=== PATIENT | female | born 1995 | race Caucasian/White ===

== ENCOUNTER 2022-09-19 14:36 | Inpatient (IN) | payer BC ==
[~2022-09-19 14:36] MED LIST: Bupivacaine/Epinephrine 0.25% 30 ML VIAL ONE
[2022-09-19] MEDS ORDERED: NS w/ Oxytocin 30 units 500 ML IV SCH ×3 (15:11)
[2022-09-19] MEDS ORDERED: Butorphanol Tartrate 1 MG/ML VIAL SLOW IVP PRN (15:11)
[2022-09-19] MEDS ORDERED: Zolpidem Tartrate 5 MG TAB PO PRN (15:11)
[2022-09-19] MEDS ORDERED: Diphenoxylate HCl/Atropine Tablet PO PRN ×2 (15:11)
[2022-09-19] MEDS ORDERED: Docusate 100 MG CAP PO PRN (15:11)
[2022-09-19] MEDS ORDERED: Misoprostol 200 MCG TAB PR PRN (15:11)
[2022-09-19] MEDS ORDERED: Ibuprofen 800 MG TAB PO PRN (15:11)
[2022-09-19] MEDS ORDERED: hydrALAZINE 20 MG/ML VIAL SLOW IVP PRN (15:11)
[2022-09-19] MEDS ORDERED: Carboprost 250 MCG/ML AMP IM PRN (15:11)
[2022-09-19] MEDS ORDERED: HYDROcodone/Acetaminophen 5/325 mg Tablet PO PRN ×2 (15:11)
[2022-09-19] MEDS ORDERED: Promethazine HCl 25 MG/ML VIAL IM PRN (15:11)
[2022-09-19] MEDS ORDERED: Lidocaine 1% (PF) 30 ML VIAL SC PRN (15:11)
[2022-09-19] MEDS ORDERED: Ondansetron PF 4 MG/2 ML Vial IVP PRN (15:11)
[2022-09-19] MEDS ORDERED: Acetaminophen 500 MG TAB PO PRN (15:11)
[2022-09-19] MEDS ORDERED: Misoprostol 100 MCG TAB ONE (15:14)
[2022-09-19 15:17] VITALS: BMI 22.5
[2022-09-19 15:28] LABS: Hemoglobin 11.2 g/dL (12.0-15.5); Mean Corpuscular HGB CONC 34.4 g/dL (32.0-36.0); Mean Corpuscular Hemoglobin 30.9 pg (27.0-33.0); Mean Corpuscular Volume 90.1 fl (81.6-98.3); Mean Platelet Volume 10.3 fl (7.4-10.4); Platelet Count 196 10x3/uL (150-450); RBC Distribution Width 12.4 % (11.5-14.5); Red Blood Cell (RBC) Count 3.62 10x6/uL (3.90-5.03); White Blood Cell (WBC) Count 9.9 10x3/uL (3.5-10.5)
[2022-09-19] MEDS: Lactated Ringer's 1,000 ML IV SCH (15:30)
[2022-09-19] MEDS: Misoprostol 100 MCG TAB VAG SCH ×2 (15:30→19:13)
[2022-09-19 16:42] LABS: Syphilis Antibody Nonreactive (Nonreactive); Syphilis Antibody Index 0.07 S/CO (<1.00 Non-Reactive)
[2022-09-19 16:45] LABS: HBSAg Index 0.14 S/CO (0-0.99); HIV (1/2) Antibody/Antigen Non-Reactive (NonReactive); HIV 1/2 INDEX 0.09 S/CO (<1.00); Hep B Surf Ag - L&D Non-Reactive S/CO (NonReactive)
[2022-09-20] MEDS ORDERED: Fentanyl 2 mcg/Bup 0.1% Cadd 100 ML ONE ×2 (06:07→13:17)
[2022-09-20] MEDS ORDERED: Naloxone HCl 0.4 mg/ml Vial IVP PRN ×2 (07:18)
[2022-09-20] MEDS ORDERED: diphenhydrAMINE 50 MG/ML VIAL IVP PRN (07:18)
[2022-09-20] MEDS ORDERED: Promethazine HCl 25 MG/ML VIAL IM PRN (07:18)
[2022-09-20] MEDS ORDERED: Ondansetron PF 4 MG/2 ML Vial IVP PRN ×2 (07:18→16:40)
[2022-09-20] MEDS ORDERED: Acetaminophen 325 MG TAB PO PRN (07:18)
[2022-09-20] MEDS ORDERED: ePHEDrine Sulfate 50 MG/10 ML VIAL SLOW IVP PRN (07:18)
[2022-09-20] MEDS ORDERED: Lactated Ringer's 500 ML IV PRN (07:18)
[2022-09-20] MEDS ORDERED: Moisturizing Cream (Eucerin) 113 GM JAR TOP PRN (07:18)
[2022-09-20] MEDS ORDERED: Fentanyl 2 mcg/Bupivacaine 0.1% Cassette 100 ML EPIDURAL SCH (07:30)
[2022-09-20] MEDS ORDERED: Communication Order-Pharmacy FS SCH (07:30)
[2022-09-20] MEDS ORDERED: diphenhydrAMINE 25 MG CAP PO PRN (16:40)
[2022-09-20] MEDS ORDERED: Benzocaine-Menthol 82.5 ML CAN TOP PRN (16:40)
[2022-09-20] MEDS ORDERED: Boostrix 0.5 ML (Tdap) VIAL (>/=7 yrs of age) IM ONE (16:40)
[2022-09-20] MEDS ORDERED: Preparation H Ointment 28 GM TUBE PR PRN (16:40)
[2022-09-20] MEDS ORDERED: Zolpidem Tartrate 5 MG TAB PO PRN (16:40)
[2022-09-20] MEDS ORDERED: Lanolin Ointment 7 GM TUBE TOP PRN (16:40)
[2022-09-20] MEDS ORDERED: Misoprostol 200 MCG TAB VAG PRN (16:40)
[2022-09-20] MEDS ORDERED: hydrALAZINE 20 MG/ML VIAL SLOW IVP PRN (16:40)
[2022-09-20] MEDS ORDERED: Bisacodyl 10 MG SUPP PR PRN (16:40)
[2022-09-20] MEDS ORDERED: Milk Of Magnesia 30 ML UDCUP PO PRN (16:40)
[2022-09-20] MEDS ORDERED: HYDROcodone/Acetaminophen 5/325 mg Tablet PO PRN ×2 (16:40)
[2022-09-20] MEDS ORDERED: Witch Hazel-Glycerin 1 EACH JAR TOP PRN (16:42)
[2022-09-20] MEDS ORDERED: NS w/ Oxytocin 30 units 500 ML IV SCH (16:45)
[2022-09-20] MEDS: Ferrous Sulfate 325 MG TAB PO SCH (18:44)
[2022-09-20] MEDS: Ibuprofen 800 MG TAB PO SCH (19:55)
[2022-09-20] MEDS: Misoprostol 100 MCG TAB VAG SCH (20:42)
[2022-09-20] MEDS: Lactated Ringer's 1,000 ML IV SCH ×2 (20:42→20:43)
[2022-09-20] MEDS: Docusate 100 MG CAP PO SCH (21:16)
[2022-09-21] MEDS: Ibuprofen 800 MG TAB PO SCH ×3 (04:22→21:43)
[2022-09-21 04:55] LABS: Hemoglobin 9.8 g/dL (12.0-15.5); Mean Corpuscular HGB CONC 33.8 g/dL (32.0-36.0); Mean Corpuscular Hemoglobin 31.2 pg (27.0-33.0); Mean Corpuscular Volume 92.4 fl (81.6-98.3); Mean Platelet Volume 10.7 fl (7.4-10.4); Platelet Count 181 10x3/uL (150-450); RBC Distribution Width 12.5 % (11.5-14.5); Red Blood Cell (RBC) Count 3.14 10x6/uL (3.90-5.03); White Blood Cell (WBC) Count 12.6 10x3/uL (3.5-10.5)
[2022-09-21] MEDS: Ferrous Sulfate 325 MG TAB PO SCH ×2 (08:59→18:01)
[2022-09-21] MEDS: Prenatal Vitamin 1 TAB PO SCH (09:00)
[2022-09-21] MEDS: Docusate 100 MG CAP PO SCH ×2 (09:00→21:42)
[2022-09-21 17:18] VITALS: TEMP 98.4
[2022-09-22] MEDS: Ibuprofen 800 MG TAB PO SCH (06:46)
[2022-09-22 07:53] VITALS: BP 116/76
[2022-09-22] MEDS: Docusate 100 MG CAP PO SCH (09:53)
[2022-09-22] MEDS: Ferrous Sulfate 325 MG TAB PO SCH (09:53)
[2022-09-22] MEDS: Prenatal Vitamin 1 TAB PO SCH (09:53)
== END 2022-09-22 13:15 | disposition home or self-care (01) | DRG 806 ==
LOC: CSHLD 14:36 → CSHPED 09-20 18:33
PROVIDERS: ADMIT Obstetrics & Gynecology; ATTEND Obstetrics & Gynecology
PROC: 3E0P7VZ Introduction of Hormone into Female Reproductive, Via Natural or Artificial Opening (ICD-10-PCS; 2022-09-19)
PROC: 10E0XZZ Delivery of Products of Conception, External Approach (ICD-10-PCS; principal; 2022-09-20)
PROC: 0KQM0ZZ Repair Perineum Muscle, Open Approach (ICD-10-PCS; 2022-09-20)
PROC: 10H07YZ Insertion of Other Device into Products of Conception, Via Natural or Artificial Opening (ICD-10-PCS; 2022-09-20)
DX: O42.02 Full-term premature rupture of membranes, onset of labor within 24 hours of rupture (principal); O41.03X0 Oligohydramnios, third trimester, not applicable or unspecified; Z37.0 Single live birth; Z3A.39 39 weeks gestation of pregnancy; O36.5930 Maternal care for other known or suspected poor fetal growth, third trimester, not applicable or unspecified; O70.1 Second degree perineal laceration during delivery
CPT/HCPCS: 36415; 51702; 85027; 86780; 86850; 86900; 86901; 87340; 87389; 88307; J2590; J7120